=== PATIENT | female | born 1980 ===

== ENCOUNTER 2021-09-30 11:30 | Outpatient (REF) | payer MEDICAID, SELFPAY ==
--- NOTE | ~2021-09-30 | MM_ITS ---
EXAMINATION: MM SCREENING DIGITAL BREAST TOMOSYNTHESIS, BILATERAL CLINICAL INFORMATION: Screening. Asymptomatic. Age 41. The lifetime risk of breast cancer based on the Tyrer-Cuzick Model is 13%. COMPARISON: None (current study represents initial baseline exam). TECHNIQUE: Digital breast tomosynthesis is performed in both the craniocaudal and mediolateral oblique views along with computer-aided detection (CAD). Synthesized 2D images are generated from the tomosynthesis. Additional exaggerated left CC view is provided. FINDINGS: There are scattered areas of fibroglandular density (ACR BI-RADS breast composition Category b). Breast tissue composition borders on predominantly fatty. There are no significant masses, abnormal calcifications, or other abnormalities. The axilla and skin contours are unremarkable. MM/MM tomosynthesis screening BI IMPRESSION: No mammographic evidence of malignancy. ASSESSMENT: BI-RADS 1: Negative RECOMMENDATION: Routine annual mammography screening. This patient's information was entered into a reminder system with a target due date for their next mammogram.
== END 2021-09-30 11:31 | disposition home or self-care (01) ==
LOC: HO.MAMMO 11:30
PROVIDERS: Visit Provider Nurse Practitioner Family
DX: Z12.31 Encounter for screening mammogram for malignant neoplasm of breast (principal)
CPT/HCPCS: 77063; 77067

== ENCOUNTER 2022-10-30 11:37 | Outpatient (REF) | payer MEDICAID, SELFPAY ==
--- NOTE | ~2022-10-30 | MM_ITS ---
EXAMINATION: MM SCREENING DIGITAL BREAST TOMOSYNTHESIS, BILATERAL CLINICAL INFORMATION: Screening. Asymptomatic. The lifetime risk of breast cancer based on the Tyrer-Cuzick Model is 9%. COMPARISON: Mammography: 09/30/2021 (baseline) TECHNIQUE: Digital breast tomosynthesis is performed in both the craniocaudal and mediolateral oblique views along with computer-aided detection (CAD). Synthesized 2D images are generated from the tomosynthesis. Additional bilateral CC views are provided. FINDINGS: There are scattered areas of fibroglandular density (ACR BI-RADS breast composition Category b). Breast tissue composition borders on dominantly fatty. Background stromal and fibroglandular densities are stable and there is no architectural abnormality. There are no significant masses, abnormal calcifications, or other abnormalities. The axilla and skin contours are unremarkable. MM/MM tomosynthesis screening BI IMPRESSION: No mammographic evidence of malignancy. ASSESSMENT: BI-RADS 1: Negative RECOMMENDATION: Routine annual mammography screening. This patient's information was entered into a reminder system with a target due date for their next mammogram.
== END 2022-10-30 11:38 | disposition home or self-care (01) ==
LOC: HO.MAMMO 11:37
PROVIDERS: PCP Registered Nurse; Visit Provider Registered Nurse
DX: Z12.31 Encounter for screening mammogram for malignant neoplasm of breast (principal)
CPT/HCPCS: 77063; 77067

== ENCOUNTER 2023-10-28 11:26 | Outpatient (REF) | payer MEDICAID, SELFPAY ==
[2023-10-28 13:40] LABS: MANUAL DIFF FLAG NO
[2023-10-28 13:43] LABS: Basophils Percent Auto 0.6 % (0-2); Eosinophils Absolute Auto 0.1 X10*3/uL (0.0-0.4); Eosinophils Percent Auto 2.1 % (0-4); Hematocrit 35.5 % (37.0-47.0); Hemoglobin 11.3 g/dl (12.0-16.0); Imm Gran Abs Auto 0.02 X10*3/uL (0.00-0.03); Imm Gran Pct Auto 0.3 % (0.0-0.4); Lymphocytes Percent Auto 28.9 % (20-40); Mean Corpuscular HGB Conc 31.8 g/dl (31.0-35.0); Mean Corpuscular Hemoglobin 25.2 pg (27.0-33.0); Mean Corpuscular Volume 79.1 fL (80.0-98.0); Mean Platelet Volume 10.2 fL (9.4-12.3); Monocytes Absolute Auto 0.4 X10*3/uL (0.1-1.2); Monocytes Percent Auto 6.4 % (2-11); Neutrophils Absolute Auto 4.2 x10*3/uL (2.0-8.3); Neutrophils Percent Auto 61.7 % (45-73); Platelet Count 366 X10*3/uL (160-400); Red Blood Count 4.49 X10*6/uL (4.20-5.50); Red Cell Distribution Width 15.4 % (11.0-16.0); White Blood Count 6.7 X10*3/uL (4.8-10.8)
[2023-10-28 13:54] LABS: Estimated Average Glucose 114 mg/dL; Hemoglobin A1c % 5.6 % (<6.0)
[2023-10-28 14:23] LABS: Alanine Aminotransferase 11 U/L (0-31); Alkaline Phosphatase 67 U/L (39-117); Anion Gap 14 (12-20); Aspartate Amino Transferase 20 U/L (5-31); Bilirubin Total 0.4 mg/dL (0.0-1.0); Blood Urea Nitrogen 13 mg/dL (9-16); Calcium 9.3 mg/dL (8.4-10.2); Carbon Dioxide 21 mmol/L (22-29); Chloride 106 mmol/L (96-108); Cholesterol 161 mg/dL (<200); Estimated Glomerular Filt Rate > 60; Glucose Random 82 mg/dL (60-115); HDL Cholesterol 48 mg/dL (>40); LDL Cholesterol Calculated 102 mg/dL (<100); Potassium 3.8 mmol/L (3.3-5.1); Sodium 137 mmol/L (135-145); Total Protein 8.2 g/dL (6.5-8.0); Triglycerides 56 mg/dL (<150)
[2023-10-28 14:24] LABS: Free T4 (Free Thyroxine) 0.85 ng/dL (0.71-1.85)
== END 2023-10-28 11:27 | disposition home or self-care (01) ==
LOC: HO.HHCL 11:26
PROVIDERS: Visit Provider Nurse Practitioner
DX: E66.01 Morbid (severe) obesity due to excess calories (principal); Z68.41 Body mass index [BMI] 40.0-44.9, adult; Z86.2 Personal history of diseases of the blood and blood-forming organs and certain disorders involving the immune mechanism
CPT/HCPCS: 36415; 80053; 80061; 83036; 84439; 84443; 85025

== ENCOUNTER 2023-11-02 10:35 | Outpatient (REF) | payer MEDICAID, SELFPAY ==
--- NOTE | ~2023-11-02 | MM_ITS ---
EXAMINATION: MM SCREENING DIGITAL BREAST TOMOSYNTHESIS, BILATERAL CLINICAL INFORMATION: Screening. Asymptomatic. COMPARISON: Mammography: This study is compared with prior exams dating back to 2021. TECHNIQUE: Digital breast tomosynthesis is performed in both the craniocaudal and mediolateral oblique views along with computer-aided detection (CAD). Synthesized 2D images are generated from the tomosynthesis. FINDINGS: The breasts are almost entirely fatty (ACR BI-RADS breast composition Category a). There are no significant masses, abnormal calcifications, or other abnormalities. MM/MM tomosynthesis screening BI IMPRESSION: No mammographic evidence of malignancy. ASSESSMENT: BI-RADS BI-RADS 1 - Negative RECOMMENDATION: Routine annual mammography screening. 1 year F/U This examination should not preclude the clinical evaluation of a suspicious palpable abnormality. This patient's information was entered into a reminder system with a target due date for their next mammogram.
== END 2023-11-02 10:36 | disposition home or self-care (01) ==
LOC: HO.MAMMO 10:35
PROVIDERS: PCP Nurse Practitioner; Visit Provider Nurse Practitioner
DX: Z12.31 Encounter for screening mammogram for malignant neoplasm of breast (principal)
CPT/HCPCS: 77063; 77067

== ENCOUNTER → 2023-11-02 10:45 | Outpatient (BNV) | payer MEDICAID, SELFPAY | PROVIDERS: PCP Nurse Practitioner; Visit Provider Radiology Diagnostic Radiology | DX: Z12.31 Encounter for screening mammogram for malignant neoplasm of breast (principal) | CPT/HCPCS: 77063; 77067 ==

== ENCOUNTER 2023-12-22 10:32 | Outpatient (REF) | payer MEDICAID, SELFPAY ==
[2023-12-22 13:16] LABS: MANUAL DIFF FLAG NO
[2023-12-22 13:27] LABS: Basophils Absolute Auto 0.1 X10*3/uL (0.0-0.2); Basophils Percent Auto 0.6 % (0-2); Eosinophils Absolute Auto 0.2 X10*3/uL (0.0-0.4); Eosinophils Percent Auto 1.9 % (0-4); Hematocrit 36.9 % (37.0-47.0); Hemoglobin 11.8 g/dl (12.0-16.0); Imm Gran Abs Auto 0.01 X10*3/uL (0.00-0.03); Imm Gran Pct Auto 0.1 % (0.0-0.4); Immature Retic Fraction 22.7 % (3.0-15.9); Lymphocytes Absolute Auto 1.9 X10*3/uL (1.2-4.9); Lymphocytes Percent Auto 24.2 % (20-40); Mean Corpuscular Hemoglobin 25.3 pg (27.0-33.0); Mean Platelet Volume 10.4 fL (9.4-12.3); Monocytes Absolute Auto 0.5 X10*3/uL (0.1-1.2); Monocytes Percent Auto 6.4 % (2-11); Neutrophils Absolute Auto 5.1 x10*3/uL (2.0-8.3); Neutrophils Percent Auto 66.8 % (45-73); Platelet Count 343 X10*3/uL (160-400); Red Blood Count 4.67 X10*6/uL (4.20-5.50); Red Cell Distribution Width 16.5 % (11.0-16.0); Reticulocyte Percent 1.4 % (0.5-1.8); Reticulocytes Absolute 0.064 X10*6/uL (0.026-0.095); White Blood Count 7.7 X10*3/uL (4.8-10.8)
[2023-12-22 13:41] LABS: Iron 43 mcg/dL (30-160); Percent Iron Saturation 11 % (15-50); Total Iron Binding Capacity 409 mcg/dL (228-428); Unsaturated Iron Binding 366 ug/dL
[2023-12-22 17:32] LABS: Ferritin 11 ng/mL (10-250)
== END 2023-12-22 10:33 | disposition home or self-care (01) ==
LOC: HO.HHCL 10:32
PROVIDERS: Visit Provider Nurse Practitioner
DX: Z86.2 Personal history of diseases of the blood and blood-forming organs and certain disorders involving the immune mechanism (principal)
CPT/HCPCS: 36415; 82728; 83540; 85025; 85045

== ENCOUNTER → 2023-12-29 13:30 | Outpatient (BNV) | payer MEDICAID, SELFPAY | PROVIDERS: PCP Nurse Practitioner; Visit Provider Radiology Diagnostic Radiology | DX: N63.21 Unspecified lump in the left breast, upper outer quadrant (principal) | CPT/HCPCS: 76642 ==

== ENCOUNTER 2023-12-29 13:31 | Outpatient (REF) | payer MEDICAID, SELFPAY ==
--- NOTE | ~2023-12-29 | US_ITS ---
EXAMINATION: US DIAGNOSTIC ULTRASOUND BREAST, LEFT CLINICAL INFORMATION: 43-year-old female with painful palpable lump left breast 2:00 axis. COMPARISON: No prior ultrasound. Mammography 11/02/2023, 10/30/2022, 09/30/2021. TECHNIQUE: Ultrasound of the left breast is performed with real-time hogue scale imaging and color Doppler. Attention was given to the 2:00 axis in the region of painful palpable lump. FINDINGS: In the 2:00 axis, 15 cm from the nipple, there is a generalized subcutaneous fat region of increased echogenicity, suggestive of fatty contusive changes. This correlates well with the focus of palpable concern. There is no encapsulated mass or suspicious mass. Apparently overlying this region was a region of eczema. No architectural changes or abnormal shadowing. These findings are probably benign. Recommend six-month interval follow-up to assess for appropriate resolution. Results are provided to the patient at time of visit by the technologist. US/US breast LT limited mamm only IMPRESSION: 2:00 axis generalized subcutaneous fat increased echogenicity, left breast, favoring breast contusive changes. Apparently there was an overlying patchy of eczema. Recommend six-month interval follow-up targeted left breast ultrasound to ensure for appropriate resolution/evolution. ASSESSMENT: BI-RADS 3 - Probably benign finding(s) - 6 month follow-up suggested RECOMMENDATION: 6 Month F/U This patient's information was entered into a reminder system with a target due date for their next mammogram.
== END 2023-12-29 13:32 | disposition home or self-care (01) ==
LOC: HO.MAMMO 13:31
PROVIDERS: PCP Nurse Practitioner; Visit Provider Nurse Practitioner
DX: N63.21 Unspecified lump in the left breast, upper outer quadrant (principal)
CPT/HCPCS: 76642

== ENCOUNTER 2024-06-23 12:05 | Outpatient (REF) | payer MEDICAID, SELFPAY ==
[2024-06-23 13:04] LABS: MANUAL DIFF FLAG NO
[2024-06-23 13:08] LABS: Basophils Absolute Auto 0.1 X10*3/uL (0.0-0.2); Basophils Percent Auto 0.7 % (0-2); Eosinophils Absolute Auto 0.2 X10*3/uL (0.0-0.4); Hematocrit 38.2 % (37.0-47.0); Imm Gran Abs Auto 0.02 X10*3/uL (0.00-0.03); Imm Gran Pct Auto 0.3 % (0.0-0.4); Lymphocytes Absolute Auto 1.8 X10*3/uL (1.2-4.9); Lymphocytes Percent Auto 23.9 % (20-40); Mean Corpuscular HGB Conc 31.4 g/dl (31.0-35.0); Mean Corpuscular Volume 82.9 fL (80.0-98.0); Mean Platelet Volume 10.1 fL (9.4-12.3); Monocytes Absolute Auto 0.4 X10*3/uL (0.1-1.2); Monocytes Percent Auto 5.6 % (2-11); Neutrophils Percent Auto 67.5 % (45-73); Platelet Count 395 X10*3/uL (160-400); Red Blood Count 4.61 X10*6/uL (4.20-5.50); Red Cell Distribution Width 14.6 % (11.0-16.0); White Blood Count 7.5 X10*3/uL (4.8-10.8)
[2024-06-23 13:40] LABS: Anion Gap 10 (12-20); Blood Urea Nitrogen 10 mg/dL (9-16); Calcium 8.8 mg/dL (8.4-10.2); Carbon Dioxide 23 mmol/L (22-29); Chloride 109 mmol/L (96-108); Estimated Glomerular Filt Rate > 60; Glucose Random 89 mg/dL (60-115); Iron 46 mcg/dL (30-160); Percent Iron Saturation 12 % (15-50); Potassium 3.8 mmol/L (3.3-5.1); Sodium 138 mmol/L (135-145); Total Iron Binding Capacity 383 mcg/dL (228-428); Unsaturated Iron Binding 337 ug/dL
[2024-06-23 13:45] LABS: Estimated Average Glucose 105 mg/dL; Hemoglobin A1C 118.5804 umol/L; Hemoglobin A1c % 5.3 % (<6.0); Total Hemoglobin (HGBA1C) 3394.5506 umol/L
== END 2024-06-23 12:06 | disposition home or self-care (01) ==
LOC: HO.HHCL 12:05
PROVIDERS: Visit Provider Nurse Practitioner
DX: D50.8 Other iron deficiency anemias (principal); E66.813 Obesity, class 3; E66.01 Morbid (severe) obesity due to excess calories; Z68.41 Body mass index [BMI] 40.0-44.9, adult
CPT/HCPCS: 36415; 80048; 83036; 83540; 85025

== ENCOUNTER 2024-07-03 09:07 | Outpatient (REF) | payer MEDICAID, SELFPAY ==
--- NOTE | ~2024-07-03 | US_ITS ---
EXAMINATION: US DIAGNOSTIC ULTRASOUND BREAST, LEFT CLINICAL INFORMATION: 33-year-old female with palpable left breast lump follow-up ultrasound.. COMPARISON: Comparison is made with relevant prior imaging. TECHNIQUE: Ultrasound of the breast is performed with real-time hogue scale imaging and color Doppler. FINDINGS: Targeted color Doppler ultrasound scanning from 1-4 o'clock demonstrates normal fibronodular breast tissue. The previously seen questioned area on prior ultrasound is no longer seen and only normal fibroglandular breast tissue seen. There is no sonographic abnormality. Results are discussed with the patient at time of visit. US/US breast LT limited mamm only IMPRESSION: Normal fibroglandular breast tissue in the left breast from 1-4 o'clock. Negative. ASSESSMENT: BI-RADS 1: Negative RECOMMENDATION: Recommend clinical evaluation and follow-up for area of palpable lump in the left breast. Recommend return to screening mammogram. This patient's information was entered into a reminder system with a target due date for their next mammogram. Electronically signed by: Shira Tay DO 07/03/2024 10:02 AM [facility]
== END 2024-07-03 09:08 | disposition home or self-care (01) ==
LOC: HO.MAMMO 09:07
PROVIDERS: PCP Nurse Practitioner; Visit Provider Nurse Practitioner
DX: R92.2 Inconclusive mammogram (principal)
CPT/HCPCS: 76642

== ENCOUNTER → 2024-07-03 09:15 | Outpatient (BNV) | payer MEDICAID, SELFPAY | PROVIDERS: PCP Nurse Practitioner; Visit Provider Internal Medicine | DX: N63.20 Unspecified lump in the left breast, unspecified quadrant (principal) | CPT/HCPCS: 76642 ==